=== PATIENT | female | born 1950 | race Caucasian/White ===

== ENCOUNTER → 2023-10-28 11:22 | Outpatient (REF) | payer OTHER, SELFPAY | LOC: HWRAD 11:22 | PROVIDERS: ATTENDING PHYSICIAN Nurse Practitioner | DX: N95.9 Unspecified menopausal and perimenopausal disorder (principal); Z12.31 Encounter for screening mammogram for malignant neoplasm of breast | CPT/HCPCS: 77063; 77067; 77080 ==

== ENCOUNTER → 2024-01-20 08:02 | Outpatient (REF) | payer OTHER, SELFPAY | LOC: HWEVLT 08:02 | PROVIDERS: ATTENDING PHYSICIAN Radiology Vascular & Interventional Radiology | DX: I83.893 Varicose veins of bilateral lower extremities with other complications (principal) | CPT/HCPCS: 93970 ==

== ENCOUNTER → 2024-02-17 10:20 | Outpatient (REF) | payer OTHER, SELFPAY | LOC: RAD 10:20 | PROVIDERS: ATTENDING PHYSICIAN Physician Assistant; FAMILY PHYSICIAN Nurse Practitioner | DX: M54.9 Dorsalgia, unspecified (principal); M81.0 Age-related osteoporosis without current pathological fracture | CPT/HCPCS: 72072; 72100 ==

== ENCOUNTER → 2024-03-21 07:58 | Outpatient (REF) | payer OTHER, SELFPAY | LOC: HWEVLT 07:58 | PROVIDERS: ATTENDING PHYSICIAN Radiology Diagnostic Radiology | DX: I83.892 Varicose veins of left lower extremity with other complications (principal) | CPT/HCPCS: 36478; C1769 ==

== ENCOUNTER → 2024-04-06 09:44 | Outpatient (REF) | payer OTHER, SELFPAY | LOC: HWEVLT 09:44 | PROVIDERS: ATTENDING PHYSICIAN Radiology Diagnostic Radiology | DX: I83.893 Varicose veins of bilateral lower extremities with other complications (principal) | CPT/HCPCS: 36478; 93971; C1769 ==

== ENCOUNTER → 2024-04-13 14:55 | Outpatient (REF) | payer OTHER, SELFPAY | LOC: HWEVLT 14:55 | PROVIDERS: ATTENDING PHYSICIAN Radiology Vascular & Interventional Radiology | DX: I83.891 Varicose veins of right lower extremity with other complications (principal) | CPT/HCPCS: 93971 ==

== ENCOUNTER 2025-04-12 08:15 | Emergency (ER) | payer OTHER, SELFPAY ==
[2025-04-12 08:21] VITALS: BP 196/94
[2025-04-12 08:27] VITALS: BP 196/94
--- NOTE | 2025-04-12 08:49 | ED.GENMED ---
History of Present Illness
General
Chief Complaint: Blood Pressure Problem
Time Seen by Provider: 04/12/25 08:33
History of Present Illness
History of Present Illness:
74-year-old female with history of osteoporosis on Prolia presents to the emergency department for evaluation of blood pressure readings over the past several days. States that typically she does have some component of whitecoat hypertension due to
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 She does have a home wrist cuff states that manage 4170s systolic. She has no history of hypertension. Reports intermittent headaches but denies chest pain,
shortness of breath, leg swelling, or abnormal urine output
Review of Systems
Review of Systems
Allergies reviewed?: Yes
All Other Systems: ROS reviewed and negative except as documented in HPI and ROS
Phy Exam
Physical Exam
Physical Exam:
GEN: Well appearing, NAD, WDWN
HEENT: Oral mucosa moist, no scleral icterus
Cardiac: Regular rate and rhythm, no murmur
Lung: No respiratory distress, no tachypnea, lungs clear to auscultation
MSK: No gross deformity or injuries
Skin: Good color, no pallor or jaundice, no rashes
Neuro: AO x3, moves all extremities freely
Psych: Calm, cooperative
Course
Vital Signs
Initial and Last Documented VS:
Initial Vital Signs
Temp Pulse Resp BP Pulse Ox
97.8 F 71 20 196/94 99
04/12/25 08:21 04/12/25 08:21 04/12/25 08:21 04/12/25 08:21 04/12/25 08:21
Last Documented Vital Signs
Temp Pulse Resp BP Pulse Ox
98.0 F 75 20 198/92 98
04/12/25 08:27 04/12/25 09:09 04/12/25 09:09 04/12/25 09:09 04/12/25 09:04
MDM/Problems Addressed
MDM/Problems Addressed:
Patient presenting with asymptomatic hypertension given on numerous recent readings of elevated blood pressure will initiate oral antihypertensives, no clinical signs of endorgan injury, no need for labs or EKG at this time
*Pulse Oximetry
SaO2: 98
Oxygen Mode of Delivery: Room air
Patient hypoxic: no
*Critical Care Note
Total Time (30-74mins, 75-104mins- exclusive of procedures): Not Applicable
ED Attending Note
-
Portions of this chart may have been created with voice recognition software.� Occasional wrong word or��sound alike� substitutions may have occurred due to the inherent limitations of voice recognition software.
Discharge Plan
Departure
Patient Disposition: Home (Routine Discharge)
Date of Disposition: 04/12/25
Time of Disposition: 08:49
Patient with high blood pressure during this ER visit?: No
Discharge Problem:
Hypertension
Instructions: High Blood Pressure (DC)
Prescriptions:
New
amlodipine 5 mg tablet
5 mg PO DAILY Qty: 30 0RF
Activity Restrictions/Additional Instructions:
[facility]
[address]
[place] [address]
[phone]
Interventions
Interventions:
*Risk Screen - Suicide Last Done: 04/12/25 08:27
*General Assessment Last Done: 04/12/25 09:04
*Neglect/Abuse Screening Last Done: 04/12/25 08:27
*ED- Fall Risk Assessment Last Done: 04/12/25 09:04
*ED COVID-19 Vaccine History Last Done: 04/12/25 09:04
*ED Influenza Vaccine History Last Done: 04/12/25 09:04
*Nursing Disposition Last Done: 04/12/25 09:09
ED- Cardiac Assessment Last Done: 04/12/25 09:04
ED- Neurological Assessment Last Done: 04/12/25 09:04
ED- Pulmonary Assessment Last Done: 04/12/25 09:04
Discharge Date and Time
Discharge Date/Time: 04/12/25 09:11
Print Language: [place]
[2025-04-12 09:09] VITALS: BP 198/92
== END 2025-04-12 09:11 | disposition home or self-care (01) ==
LOC: EMR 08:15
PROVIDERS: EMERGENCY PHYSICIAN Emergency Medicine
DX: I10 Essential (primary) hypertension (principal); M81.0 Age-related osteoporosis without current pathological fracture
CPT/HCPCS: 99282